=== PATIENT | male | born 1975 | race Caucasian/White ===

== ENCOUNTER 2017-03-15 13:45 | Emergency (ER) | payer OTHER, SELFPAY ==
[~2017-03-15 13:45] MED LIST: Iopamidol 370 76% 100 ML VIAL ONE
[2017-03-15] MEDS ORDERED: Morphine Sulfate 2 MG/ML SYRINGE ONE ×2 (14:20→16:32)
[2017-03-15] MEDS ORDERED: Ketorolac Tromethamine 30 MG/ML VIAL ONE (14:20)
[2017-03-15] MEDS ORDERED: Diazepam 10 MG/2 ML SYRINGE ONE (14:20)
[2017-03-15] MEDS ORDERED: Ondansetron HCl/PF 4 MG/2 ML Vial ONE (14:20)
[2017-03-15 14:34] LABS: #Basophils 0.2 thou/uL (0.0-0.2); #Eosinphils 0.1 thou/uL (0.0-0.7); #Lymphocytes 2.3 thou/uL (1.20-3.40); #Monocytes 0.6 thou/uL (0.11-0.59); #Neutrophils 9.3 thou/uL (1.40-6.50); %Basophils 1.3 % (0.0-1.0); %Eosinophils 0.7 % (0.0-10.0); %Lymphocytes 18.4 % (21.0-51.0); %Monocytes 4.6 % (0.0-10.0); Hemoglobin 16.1 g/dL (14.0-18.0); Mean Corpuscular HGB CONC 35.3 g/dL (32.0-36.0); Mean Corpuscular Hemoglobin 30.5 pg (27.0-31.0); Mean Corpuscular Volume 86.4 fl (80.0-94.0); Mean Platelet Volume 7.1 fL (7.4-10.4); Platelet Count 213 thou/uL (130-400); RBC Distribution Width 11.4 % (11.5-14.5); Red Blood Cell (RBC) Count 5.28 mill/uL (4.70-6.10); White Blood Cell (WBC) Count 12.3 thou/uL (4.8-10.8)
[2017-03-15 14:43] LABS: ALT (SGPT) 15 U/L (0-55); AST (SGOT) 17 U/L (5-34); Albumin 4.3 g/dL (3.5-5.0); Alkaline Phosphatase 68 U/L (40-150); Amylase 42 U/L (25-125); Anion Gap 13 mmol/L (10-20); BUN (Urea Nitrogen) 12 mg/dL (8.9-20.6); Bilirubin, Total 0.4 mg/dL (0.2-1.2); Calc. Creatinine Clearance 0 mL/min (70-130); Calcium 9.5 mg/dL (7.8-10.44); Carbon Dioxide 25 mmol/L (22-29); Chloride 104 mmol/L (98-107); Estimated GFR-MDRD Greater than 90; Globulin 2.2 g/dL (2.4-3.5); Glucose 105 mg/dL (70-105); Lipase 9 U/L (8-78); Potassium 4.1 mmol/L (3.5-5.1); Protein, Total 6.5 g/dL (6.0-8.3); Sodium 138 mmol/L (136-145)
--- NOTE | 2017-03-15 15:49 | CT ---
CT OF CERVICAL SPINE PERFORMED WITHOUT CONTRAST ENHANCEMENT: History Neck injury. Vertebral bodies are normal in height. There is disk narrowing at C5-6, C6-7, and C7-T1. The facet s are in normal alignment. There is no evidence of any significant canal narrowing. There is some mild right foraminal narrowing at C5-6. There is no CT evidence for a fracture. IMPRESSION: No CT evidence of fracture of the cervical spine. POS: [facility]
--- NOTE | 2017-03-15 15:50 | CT ---
CT HEAD NONCONTRAST: 03/15/17 HISTORY: Fall. Head injury. COMPARISON: No comparison. There is no evidence of acute intracranial hemorrhage or infarct. the ventricles appear normal in si ze, shape and position. There is no mass effect or shift of midline structures. Small amount of fluid is noted within the maxillary sinuses. No displaced fractures are apparent. IMPRESSION: No acute intracranial abnormalities are demonstrated. POS: [facility]
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
== END 2017-03-15 16:57 | disposition home or self-care (01) ==
LOC: MADERS 13:45
DX: S06.0X1A Concussion with loss of consciousness of 30 minutes or less, initial encounter (principal); M54.9 Dorsalgia, unspecified; F17.210 Nicotine dependence, cigarettes, uncomplicated; Y04.0XXA Assault by unarmed brawl or fight, initial encounter
CPT/HCPCS: 36415; 70450; 71260; 72125; 74177; 80053; 82150; 83690; 85025; 96374; 96375; 96376; J1885; J2270; J2405; J3360

== ENCOUNTER 2017-09-25 08:44 | Emergency (ER) | payer OTHER, SELFPAY ==
[2017-09-25 09:27] LABS: #Basophils 0.1 thou/uL (0.0-0.2); #Eosinphils 0.2 thou/uL (0.0-0.7); #Lymphocytes 2.9 thou/uL (1.20-3.40); #Monocytes 0.5 thou/uL (0.11-0.59); #Neutrophils 4.7 thou/uL (1.40-6.50); %Basophils 1.6 % (0.0-1.0); %Lymphocytes 34.5 % (21.0-51.0); %Monocytes 6.1 % (0.0-10.0); %Neutrophils 55.8 % (42.0-75.0); Hemoglobin 14.5 g/dL (14.0-18.0); Mean Corpuscular HGB CONC 32.9 g/dL (32.0-36.0); Mean Corpuscular Hemoglobin 29.6 pg (27.0-31.0); Mean Corpuscular Volume 90.1 fl (80.0-94.0); Mean Platelet Volume 6.4 fL (7.4-10.4); Platelet Count 323 thou/uL (130-400); RBC Distribution Width 12.2 % (11.5-14.5); Red Blood Cell (RBC) Count 4.89 mill/uL (4.70-6.10); White Blood Cell (WBC) Count 8.4 thou/uL (4.8-10.8)
[2017-09-25] MEDS ORDERED: Morphine 10 MG/ML VIAL ONE (09:28)
[2017-09-25] MEDS ORDERED: Ketorolac Tromethamine 30 MG/ML VIAL ONE (09:28)
[2017-09-25] MEDS ORDERED: Ondansetron HCl/PF 4 MG/2 ML Vial ONE (09:28)
[2017-09-25 09:55] LABS: ALT (SGPT) 16 U/L (8-55); AST (SGOT) 16 U/L (5-34); Albumin 4.1 g/dL (3.5-5.0); Alkaline Phosphatase 94 U/L (40-150); Anion Gap 13 mmol/L (10-20); BUN (Urea Nitrogen) 11 mg/dL (8.9-20.6); Bilirubin, Total 0.4 mg/dL (0.2-1.2); Calc. Creatinine Clearance 0 mL/min (70-130); Calcium 9.2 mg/dL (7.8-10.44); Carbon Dioxide 28 mmol/L (22-29); Chloride 101 mmol/L (98-107); Estimated GFR-MDRD Greater than 90; Globulin 2.7 g/dL (2.4-3.5); Glucose 91 mg/dL (70-105); Lipase 24 U/L (8-78); Potassium 3.9 mmol/L (3.5-5.1); Protein, Total 6.8 g/dL (6.0-8.3); Sodium 138 mmol/L (136-145)
[2017-09-25 10:43] LABS: Bacteria/HPF Rare-Few HPF (None Seen); Bilirubin Negative (Negative); Blood, Urine Trace (Negative); Clarity Clear (Clear); Crystals/HPF 2+ AMORPH PHOS HPF (Negative); Glucose, Urine (Dipstick) Negative (Negative); Leukocyte Negative (Negative); Nitrite Negative (Negative); Protein, Urine (Dipstick) Negative (Neg-Trace); RBC/HPF 0-3 HPF (0-3); Specific Gravity, Urine 1.015 (1.005-1.030); Squamous Epithelial 0-3 HPF (0-3); Urobilinogen 0.2 mg/dL (0.2-1.0); WBC/HPF 0-3 HPF (0-3); pH, Urine 8.5 (5.0-9.0)
--- NOTE | 2017-09-25 11:32 | CT ---
NONCONTRAST CT FACIAL BONES: Date: 09-25-17 History: Patient fell through ceiling last night onto back. Injury after a fall. FINDINGS: No fracture is seen involving the facial bones. Temporomandibular joints have a normal appearance wi thout dislocation. There is mucosal thickening present in the left maxillary antrum as well as left frontal sinus. There is a defect in the right medial orbital wall which may be congenital in origin, although prior injury is a possibility. The orbits are normal and symmetric in appearance bilateral ly. Mild degenerative changes are seen in the visualized upper cervical spine. IMPRESSION: 1. No evidence of a facial bone fracture. 2. Sinus disease. POS: [facility]
--- NOTE | 2017-09-25 11:32 | CT ---
CT THORAX WITH IV CONTRAST CT ABDOMEN AND PELVIS WITH IV CONTRAST CT THORACIC AND LUMBAR SPINE: Date: 09/25/17 HISTORY: Injury after falling through a ceiling on to back. FINDINGS: CT THORAX: The lungs are clear without evidence of pneumothorax or pleural effusion. Tiny peripheral blebs are seen at each lung apex with minimal pleural and parenchymal scarring at each lung apex. There are no findings to suggest an aortic injury. The T1 portion of the T2 ribs are incompletely im aged but there is otherwise no evidence of fracture. CT ABDOMEN AND PELVIS: There are nonobstructing inferior pole bilateral renal calculi, each measuring 4-5 mm. Kidneys other shen have a normal CT appearance. The liver, spleen, pancreas, bilateral adrenal glands, and urinary bladder demonstrate a normal CT a ppearance. Minimal vascular calcifications are seen in the abdominal aorta and iliac arteries, but there are no findings to suggest an aortic injury. No free fluid or free intraperitoneal gas is seen in the abdomen or pelvis. No fracture is identified. CT abdomen and pelvis is overall unchanged compared to prior study on 03/15/17. CT THORACIC AND LUMBAR SPINE: Mild degenerative changes are seen within the thoracic and lumbar spine, but no fracture or subluxat ion is seen. IMPRESSION: 1. No acute findings are seen in the chest, abdomen, or pelvis. 2. Nonobstructing bilateral renal calculi. 3. No fracture or subluxation involving the thoracic or lumbar spine. POS: [facility]
--- NOTE | 2017-09-25 11:32 | CT ---
HEAD CT WITHOUT CONTRAST: Date: 09/25/17 COMPARISON: 03/15/17. HISTORY: Recent fall, trauma, fell through a ceiling and landed on back. TECHNIQUE: Serial axial CT imaging at 5 mm intervals from vertex through skull base without contrast. Coronal a nd sagittal reformatted imaging obtained. FINDINGS: There is mucosal thickening involving the maxillary sinus on the left. There is an old medial orbita l wall fracture on the right. No acute osseous abnormality is seen. There is no intracranial hemorrhage, midline shift, mass effect, or ventricular enlargement. IMPRESSION: No intracranial hemorrhage or displaced calvarial fracture. POS: [facility]
--- NOTE | 2017-09-25 11:32 | CT ---
CERVICAL SPINE CT WITHOUT CONTRAST: Date: 09/25/17 COMPARISON: 03/15/17. HISTORY: Recent fall, trauma, pain. TECHNIQUE: Serial axial CT imaging obtained at 2.5 mm intervals from skull base through lung apices without con trast. Coronal and sagittal reformatted imaging obtained. FINDINGS: The C1 ring is intact. The craniocervical junction and cervicothoracic junction are intact. No widening of the atlantoaxial interspace. Occipital condyles and dens appear within normal limits. C1-2 articulation appears unremarkable. C2-3: No osseous cause of significant central canal or neural foraminal stenosis. C3-4: Detailed assessment slightly limited secondary to motion. No osseous cause of significant central ca nal or neural foraminal stenosis. C4-5: Facet and uncovertebral osteophyte formation on the left with associated mild left neural foraminal stenosis. No osseous cause of significant central canal or right neural foraminal stenosis. C5-6: Bilateral uncovertebral osteophyte formation, right greater than left. There is associated right-ambar ed neural foraminal stenosis. There is a focus of gas in the right paracentral region which may repr esent a gas-containing small disc herniation. C6-7: Mild posterior osteophyte formation in right paracentral region. No osseous cause of significant mehnaz ral foraminal stenosis. C7-T1: Bilateral uncovertebral osteophyte formation with mild extension of bilateral neural foramina. Poste rior osteophyte formation noted. Subpleural emphysematous change again noted in right lung apex. No displaced fracture or evidence of dislocation seen. IMPRESSION: Stable multilevel cervical spine degenerative change. No evidence for acute fracture or dislocation seen. POS: [facility]
[2017-09-25] MEDS ORDERED: Sodium Chloride 0.9% 1,000 ML BAG ONE (14:18)
== END 2017-09-25 11:45 | disposition home or self-care (01) ==
LOC: MADERS 08:44
DX: T07.XXXA Unspecified multiple injuries, initial encounter (principal); F17.210 Nicotine dependence, cigarettes, uncomplicated; W17.89XA Other fall from one level to another, initial encounter
CPT/HCPCS: 70450; 70486; 71260; 72125; 74177; 80053; 81001; 83690; 85025; 87086; 96374; 96375; 96376; J1885; J2270; J2405; J7050

== ENCOUNTER 2018-01-15 20:50 | Emergency (ER) | payer SELFPAY ==
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
--- NOTE | 2018-01-15 21:51 | RAD ---
LEFT SHOULDER THREE VIEWS 01/15/18 COMPARISON: None. HISTORY: Trauma, fall, pain. FINDINGS: No evidence for glenohumeral joint dislocation. No widening of the AC or CC interspace. No displaced fracture seen. IMPRESSION: No acute findings. POS: [facility]
--- NOTE | 2018-01-15 21:52 | RAD ---
THREE VIEWS OF THE RIGHT SHOULDER 01/15/18 COMPARISON: None. HISTORY: Fall, trauma, pain. FINDINGS: There is no widening or the AC or CC interspace. There is no displaced fracture or dislocation. IMPRESSION: No acute findings. POS: [facility]
--- NOTE | 2018-01-15 21:54 | RAD ---
LEFT ELBOW TWO VIEWS: 01/15/18 COMPARISON: None. HISTORY: Fall, trauma, pain. FINDINGS: No elbow joint effusion, displaced fracture, or evidence of dislocation. IMPRESSION: No acute findings. POS: [facility]
--- NOTE | 2018-01-15 21:54 | RAD ---
TWO VIEWS RIGHT ELBOW 01/15/18 COMPARISON: None. HISTORY: Fall, trauma, pain. FINDINGS: No elbow joint effusion, displaced fracture, or evidence of dislocation. IMPRESSION: Unremarkable two view examination of the right elbow. POS: [facility]
[2018-01-15] MEDS ORDERED: HYDROcodone/Acetaminophen 10/325 mg Tablet ONE (21:59)
[2018-01-15] MEDS ORDERED: Ibuprofen 800 MG TAB ONE (21:59)
[2018-01-15] MEDS ORDERED: Acetaminophen 325 MG TAB ONE (21:59)
== END 2018-01-15 22:13 | disposition home or self-care (01) ==
LOC: MADERS 20:50
DX: S40.012A Contusion of left shoulder, initial encounter (principal); S40.011A Contusion of right shoulder, initial encounter; S50.02XA Contusion of left elbow, initial encounter; S50.01XA Contusion of right elbow, initial encounter; F17.210 Nicotine dependence, cigarettes, uncomplicated; V69.3XXA Occupant (driver) (passenger) of heavy transport vehicle injured in unspecified nontraffic accident, initial encounter
CPT/HCPCS: 71045

== ENCOUNTER 2018-02-19 20:07 | Emergency (ER) | payer SELFPAY ==
[2018-02-19] MEDS ORDERED: HYDROcodone/Acetaminophen 10/325 mg Tablet ONE (20:34)
[2018-02-19] MEDS ORDERED: Diazepam 5 MG TAB ONE (20:34)
[2018-02-19] MEDS ORDERED: Acetaminophen 325 MG TAB ONE (20:35)
[2018-02-19] MEDS ORDERED: Ketorolac Tromethamine 30 MG/ML VIAL ONE (20:35)
[2018-02-19] MEDS ORDERED: Ketorolac Tromethamine 60 MG/2 ML VIAL ONE (20:41)
== END 2018-02-19 21:06 | disposition home or self-care (01) ==
LOC: MADERS 20:07
DX: S39.012A Strain of muscle, fascia and tendon of lower back, initial encounter (principal); F17.210 Nicotine dependence, cigarettes, uncomplicated; J45.909 Unspecified asthma, uncomplicated; X50.1XXA Overexertion from prolonged static or awkward postures, initial encounter
CPT/HCPCS: 96372; J1885

== ENCOUNTER 2019-06-27 17:13 | Emergency (ER) | payer SELFPAY ==
[~2019-06-27 17:13] MED LIST changes: -Iopamidol 370 76% 100 ML VIAL ONE; +Sodium Chloride 0.9% 1,000 ML BAG ONE
[2019-06-27] MEDS ORDERED: Ketorolac Tromethamine 30 MG/ML VIAL ONE (17:39)
[2019-06-27 17:43] LABS: #Basophils 0.2 thou/uL (0.0-0.2); #Eosinphils 0.1 thou/uL (0.0-0.7); #Lymphocytes 3.5 thou/uL (1.20-3.40); #Neutrophils 9.2 thou/uL (1.40-6.50); %Basophils 1.3 % (0.0-1.0); %Lymphocytes 24.8 % (21.0-51.0); %Monocytes 7.4 % (0.0-10.0); %Neutrophils 65.4 % (42.0-75.0); Hemoglobin 17.4 g/dL (14.0-18.0); Mean Corpuscular HGB CONC 33.3 g/dL (32.0-36.0); Mean Corpuscular Hemoglobin 28.8 pg (27.0-31.0); Mean Corpuscular Volume 86.3 fL (78.0-98.0); Mean Platelet Volume 6.8 fL (7.4-10.4); Platelet Count 330 thou/uL (130-400); Red Blood Cell (RBC) Count 6.06 mill/uL (4.70-6.10)
[2019-06-27 17:45] LABS: Bilirubin Negative (Negative); Blood, Urine Negative (Negative); Clarity Clear (Clear); Glucose, Urine (Dipstick) Negative (Negative); Leukocyte Negative (Negative); Nitrite Negative (Negative); Protein, Urine (Dipstick) Negative (Neg-Trace); Urobilinogen 0.2 mg/dL (Less than 2)
[2019-06-27 17:56] LABS: Amphetamine Not Detected (NotDetected); Barbiturates Screen Not Detected (NotDetected); Benzodiazepine Screen Not Detected (NotDetected); Cocaine Metabolite Screen Not Detected (NotDetected); Medtox Control Line Valid? VALID (VALID); Methadone Not Detected (NotDetected); Methamphetamine Not Detected (NotDetected); Opiate Screen Not Detected (NotDetected); Oxycodone Screen Not Detected (NotDetected); Phencyclidine (PCP) Not Detected (NotDetected); THC/Cannabinoid Screen Not Detected (NotDetected); Tricyclic Screen Not Detected (NotDetected)
[2019-06-27 17:58] LABS: ALT (SGPT) 12 U/L (8-55); AST (SGOT) 18 U/L (5-34); Albumin 5.2 g/dL (3.5-5.0); Alkaline Phosphatase 96 U/L (40-150); Anion Gap 18 mmol/L (10-20); BUN (Urea Nitrogen) 15 mg/dL (8.9-20.6); Bilirubin, Total 0.5 mg/dL (0.2-1.2); CK (CPK) 379 U/L (30-200); Calc. Creatinine Clearance 0 mL/min (70-130); Calcium 9.8 mg/dL (7.8-10.44); Carbon Dioxide 24 mmol/L (22-29); Chloride 102 mmol/L (98-107); Estimated GFR-MDRD 50; Globulin 3.1 g/dL (2.4-3.5); Glucose 152 mg/dL (70-105); Potassium 3.4 mmol/L (3.5-5.1); Protein, Total 8.3 g/dL (6.0-8.3); Sodium 141 mmol/L (136-145)
== END 2019-06-27 19:38 | disposition home or self-care (01) ==
LOC: MADERS 17:13
DX: T67.5XXA Heat exhaustion, unspecified, initial encounter (principal); M62.82 Rhabdomyolysis; F17.210 Nicotine dependence, cigarettes, uncomplicated
CPT/HCPCS: 80053; 80306; 81003; 82550; 84484; 85025; 93005; 96361; 96374; J1885; J7050

== ENCOUNTER 2019-07-22 23:38 | Emergency (ER) | payer SELFPAY ==
[2019-07-23] MEDS ORDERED: Sodium Chloride 0.9% 2,000 ML ONE (00:06)
[2019-07-23] MEDS ORDERED: Acetaminophen 500 MG TAB ONE (00:19)
[2019-07-23 00:24] LABS: #Basophils 0.1 thou/uL (0.0-0.2); #Eosinphils 0.1 thou/uL (0.0-0.7); Mean Corpuscular Hemoglobin 28.4 pg (27.0-31.0)
[2019-07-23 00:32] LABS: #Lymphocytes 2.3 thou/uL (1.20-3.40); #Monocytes 0.8 thou/uL (0.11-0.59); #Neutrophils 7.7 thou/uL (1.40-6.50); %Basophils 1.2 % (0.0-1.0); %Eosinophils 0.6 % (0.0-10.0); %Monocytes 7.2 % (0.0-10.0); %Neutrophils 69.9 % (42.0-75.0); Mean Corpuscular HGB CONC 32.7 g/dL (32.0-36.0); Mean Corpuscular Volume 86.9 fL (78.0-98.0); Mean Platelet Volume 6.6 fL (7.4-10.4); Platelet Count 285 thou/uL (130-400); RBC Distribution Width 12.4 % (11.5-14.5); Red Blood Cell (RBC) Count 5.99 mill/uL (4.70-6.10)
[2019-07-23 00:44] LABS: ALT (SGPT) 11 U/L (8-55); AST (SGOT) 18 U/L (5-34); Acetaminophen Less than 6.0 mcg/mL (10.0-30.0); Albumin 4.7 g/dL (3.5-5.0); Alcohol Less than 10 mg/dL (Less than 10); Alkaline Phosphatase 83 U/L (40-150); Anion Gap 19 mmol/L (10-20); BUN (Urea Nitrogen) 30 mg/dL (8.9-20.6); Bilirubin, Total 0.5 mg/dL (0.2-1.2); CK (CPK) 777 U/L (30-200); Calc. Creatinine Clearance 0 mL/min (70-130); Calcium 9.1 mg/dL (7.8-10.44); Carbon Dioxide 21 mmol/L (22-29); Chloride 103 mmol/L (98-107); Estimated GFR-MDRD 29; Globulin 2.8 g/dL (2.4-3.5); Glucose 119 mg/dL (70-105); Lipase 11 U/L (8-78); Potassium 3.7 mmol/L (3.5-5.1); Protein, Total 7.5 g/dL (6.0-8.3); Salicylate Less than 8.0 mg/dL (15.0-30.0); Sodium 139 mmol/L (136-145)
[2019-07-23] MEDS ORDERED: Lidocaine 1% w/Epinephrine 1:100K 20 ML VIAL ONE (00:54)
[2019-07-23 01:07] LABS: Bilirubin Small (Negative); Blood, Urine Large (Negative); Clarity Clear (Clear); Glucose, Urine (Dipstick) Negative (Negative); Leukocyte Negative (Negative); Nitrite Negative (Negative); Protein, Urine (Dipstick) 100 mg/dL (Neg-Trace); Urobilinogen 0.2 mg/dL (Less than 2)
[2019-07-23 01:10] LABS: Bacteria/HPF 1+ HPF (None Seen); Squamous Epithelial 0-3 HPF (0-3); WBC/HPF 0-3 HPF (0-3)
[2019-07-23 01:12] LABS: Cocaine Metabolite Screen Detected (NotDetected); Phencyclidine (PCP) Not Detected (NotDetected); THC/Cannabinoid Screen Not Detected (NotDetected)
[2019-07-23 01:13] LABS: Amphetamine Detected (NotDetected); Barbiturates Screen Not Detected (NotDetected); Benzodiazepine Screen Not Detected (NotDetected); Medtox Control Line Valid? VALID (VALID); Methadone Not Detected (NotDetected); Methamphetamine Detected (NotDetected); Opiate Screen Not Detected (NotDetected); Oxycodone Screen Not Detected (NotDetected); Tricyclic Screen Not Detected (NotDetected)
--- NOTE | 2019-07-23 05:54 | RAD ---
RIGHT HAND FOUR VIEWS: INDICATIONS: Post reduction. COMPARISON: Prior exam done at 12:34 a.m. FINDINGS/IMPRESSION: Since the comparison examination, there has been interval placement of a splint. The angulated small finger metacarpal neck fracture is unchanged in alignment. POS: [facility]
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
--- NOTE | 2019-07-23 06:01 | RAD ---
CHEST ONE VIEW: INDICATIONS: Cough. COMPARISON: 05/06/2019 FINDINGS: The lungs are hyperinflated but clear. The lung apices are excluded. Heart size is normal. No acut e osseous abnormality is evident. IMPRESSION: Limited examination. Lung apices are excluded from view. There is persistent hyperinflation. No ev idence of acute infiltrate. POS: [facility]
== END 2019-07-23 02:05 | disposition home or self-care (01) ==
LOC: MADERS 23:38
DX: S62.336A Displaced fracture of neck of fifth metacarpal bone, right hand, initial encounter for closed fracture (principal); N17.9 Acute kidney failure, unspecified; E86.0 Dehydration; F17.210 Nicotine dependence, cigarettes, uncomplicated; W23.0XXA Caught, crushed, jammed, or pinched between moving objects, initial encounter
CPT/HCPCS: 26605; 71045; 80053; 80306; 80307; 81003; 81015; 82550; 83605; 83690; 85025; 96360; 96361; J2001; J7050

== ENCOUNTER 2019-10-06 09:30 | Emergency (ER) | payer SELFPAY ==
[2019-10-06] MEDS ORDERED: Ibuprofen 800 MG TAB ONE (10:08)
--- NOTE | 2019-10-06 10:28 | RAD ---
Exam:3 views left foot HISTORY: Pain. Injury. COMPARISON: None FINDINGS: Lisfranc alignment is maintained. Joint spaces are preserved. Oblique minimally displaced fracture involving the proximal phalanx of the third digit. No definite i ntra-articular extension. No additional fractures. IMPRESSION: Oblique fracture involving the proximal thalamus of the third digit.
== END 2019-10-06 10:44 | disposition home or self-care (01) ==
LOC: MADERS 09:30
DX: S92.512A Displaced fracture of proximal phalanx of left lesser toe(s), initial encounter for closed fracture (principal); F17.210 Nicotine dependence, cigarettes, uncomplicated; Z71.6 Tobacco abuse counseling; W18.40XA Slipping, tripping and stumbling without falling, unspecified, initial encounter
CPT/HCPCS: 99406

== ENCOUNTER 2020-02-06 20:25 | Emergency (ER) | payer SELFPAY ==
[~2020-02-06 20:25] MED LIST changes: -Sodium Chloride 0.9% 1,000 ML BAG ONE; +Sodium Chloride Irrig Solution 250 ML BOT ONE
[2020-02-06] MEDS ORDERED: HYDROcodone/Acetaminophen 5/325 mg Tablet ONE ×2 (20:46→20:49)
[2020-02-06] MEDS ORDERED: Ketorolac Tromethamine 60 MG/2 ML VIAL ONE (20:47)
[2020-02-06] MEDS ORDERED: Lidocaine 1% w/Epinephrine 1:100K 20 ML VIAL ONE (20:47)
[2020-02-06] MEDS ORDERED: Bacitracin 1 PK ONE (21:15)
[2020-02-06] MEDS ORDERED: Morphine 4 MG/ML VIAL ONE (21:17)
--- NOTE | 2020-02-06 21:30 | RAD ---
4 views right elbow: 02/06/2020 COMPARISON: 01/15/2018 HISTORY: Injury, trauma, pain FINDINGS: No fracture or dislocation. No radiopaque foreign body or subcutaneous gas. IMPRESSION: No acute findings.
--- NOTE | 2020-02-06 21:31 | RAD ---
3 views right shoulder: 02/06/2020 COMPARISON: 01/15/2018 HISTORY: Injury, trauma, pain FINDINGS: No fracture or dislocation. No radiopaque foreign body or subcutaneous gas. IMPRESSION: No acute findings.
== END 2020-02-06 21:45 | disposition home or self-care (01) ==
LOC: MADERS 20:25
DX: S81.812A Laceration without foreign body, left lower leg, initial encounter (principal); S43.401A Unspecified sprain of right shoulder joint, initial encounter; S50.01XA Contusion of right elbow, initial encounter; F17.210 Nicotine dependence, cigarettes, uncomplicated; W01.110A Fall on same level from slipping, tripping and stumbling with subsequent striking against sharp glass, initial encounter; Y99.0 Civilian activity done for income or pay
CPT/HCPCS: 12002; 96372; J1885; J2270

== ENCOUNTER 2020-02-17 14:23 | Emergency (ER) | payer SELFPAY | END 2020-02-17 15:05 | disposition home or self-care (01) | LOC: MADERS 14:23 | DX: S81.012D Laceration without foreign body, left knee, subsequent encounter (principal); F17.210 Nicotine dependence, cigarettes, uncomplicated; X58.XXXD Exposure to other specified factors, subsequent encounter ==

== ENCOUNTER 2021-04-27 14:01 | Emergency (ER) | payer SELFPAY ==
[~2021-04-27 14:01] MED LIST changes: +Iopamidol 370 76% 100 ML VIAL ONE; -Sodium Chloride Irrig Solution 250 ML BOT ONE
[2021-04-27] MEDS ORDERED: Sodium Chloride 0.9% 1,000 ML ONE (14:27)
[2021-04-27] MEDS ORDERED: Ketorolac Tromethamine 30 MG/ML VIAL ONE (14:27)
[2021-04-27] MEDS ORDERED: Dexamethasone 10 MG/ML VIAL ONE (14:27)
[2021-04-27 14:38] LABS: #Basophils 0.1 thou/uL (0.0-0.2); #Eosinphils 0.1 thou/uL (0.0-0.7); #Lymphocytes 2.6 thou/uL (1.20-3.40); #Neutrophils 8.5 thou/uL (1.40-6.50); %Basophils 0.9 % (0.0-1.0); %Eosinophils 1.2 % (0.0-10.0); %Lymphocytes 21.2 % (21.0-51.0); %Neutrophils 68.7 % (42.0-75.0); Hemoglobin 13.8 g/dL (14.0-18.0); Mean Corpuscular Hemoglobin 28.9 pg (27.0-31.0); Mean Corpuscular Volume 87.5 fL (78.0-98.0); Mean Platelet Volume 7.8 fL (7.4-10.4); Platelet Count 256 thou/uL (130-400); RBC Distribution Width 11.6 % (11.5-14.5); Red Blood Cell (RBC) Count 4.78 mill/uL (4.70-6.10); White Blood Cell (WBC) Count 12.3 thou/uL (4.8-10.8)
[2021-04-27 14:53] LABS: Anion Gap 18 mmol/L (10-20); BUN (Urea Nitrogen) 17 mg/dL (8.9-20.6); Calc. Creatinine Clearance 0 mL/min (70-130); Calcium 8.8 mg/dL (7.8-10.44); Carbon Dioxide 19 mmol/L (22-29); Chloride 102 mmol/L (98-107); Glucose 154 mg/dL (70-105); Potassium 3.8 mmol/L (3.5-5.1); Sodium 135 mmol/L (136-145)
[2021-04-27] MEDS ORDERED: Lidocaine Viscous Sol 2% 15 ml UD Cup ONE (14:53)
[2021-04-27] MEDS ORDERED: Lorazepam 2 MG/ML VIAL ONE (14:55)
== END 2021-04-27 16:22 | disposition home or self-care (01) ==
LOC: MADERS 14:01
DX: J02.9 Acute pharyngitis, unspecified (principal); F17.290 Nicotine dependence, other tobacco product, uncomplicated
CPT/HCPCS: 70491; 80048; 85025; 96372; 96374; 96375; J1100; J1885; J2060; J7050; Q9967

== ENCOUNTER 2021-08-05 17:58 | Emergency (ER) | payer SELFPAY ==
[~2021-08-05 17:58] MED LIST changes: +Sodium Chloride 0.9% 1,000 ML BAG ONE
[2021-08-05 18:53] LABS: #Basophils 0.1 thou/uL (0.0-0.2); #Eosinphils 0.1 thou/uL (0.0-0.7); #Lymphocytes 2.1 thou/uL (1.20-3.40); #Monocytes 0.6 thou/uL (0.11-0.59); #Neutrophils 7.6 thou/uL (1.40-6.50); %Basophils 1.1 % (0.0-1.0); %Eosinophils 1.1 % (0.0-10.0); %Lymphocytes 20.1 % (21.0-51.0); %Monocytes 5.6 % (0.0-10.0); %Neutrophils 72.1 % (42.0-75.0); Hemoglobin 14.6 g/dL (14.0-18.0); Mean Corpuscular HGB CONC 32.7 g/dL (32.0-36.0); Mean Corpuscular Volume 88.7 fL (78.0-98.0); Mean Platelet Volume 7.6 fL (7.4-10.4); Platelet Count 311 thou/uL (130-400); RBC Distribution Width 11.6 % (11.5-14.5); Red Blood Cell (RBC) Count 5.05 mill/uL (4.70-6.10); White Blood Cell (WBC) Count 10.6 thou/uL (4.8-10.8)
[2021-08-05] MEDS ORDERED: Morphine 4 MG/ML VIAL ONE (18:55)
[2021-08-05] MEDS ORDERED: Ondansetron PF 4 MG/2 ML Vial ONE (18:57)
[2021-08-05 19:00] LABS: Prothrombin Time 13.2 sec (12.0-14.7)
[2021-08-05 19:01] LABS: PTT 24.7 sec (22.9-36.1)
[2021-08-05 19:08] LABS: ALT (SGPT) 14 U/L (8-55); AST (SGOT) 19 U/L (5-34); Albumin 3.9 g/dL (3.5-5.0); Alcohol Less than 10 mg/dL (Less than 10); Alkaline Phosphatase 71 U/L (40-110); Anion Gap 13 mmol/L (10-20); BUN (Urea Nitrogen) 11 mg/dL (8.9-20.6); Bilirubin, Total 0.2 mg/dL (0.2-1.2); Calc. Creatinine Clearance 0 mL/min (70-130); Calcium 9.5 mg/dL (7.8-10.44); Carbon Dioxide 24 mmol/L (22-29); Chloride 107 mmol/L (98-107); Globulin 2.5 g/dL (2.4-3.5); Glucose 69 mg/dL (70-105); Potassium 3.7 mmol/L (3.5-5.1); Protein, Total 6.4 g/dL (6.0-8.3); Sodium 140 mmol/L (136-145)
[2021-08-05] MEDS ORDERED: Ketorolac Tromethamine 30 MG/ML VIAL ONE (20:07)
[2021-08-05] MEDS ORDERED: Pantoprazole 40 MG VIAL ONE (20:07)
[2021-08-05 20:47] LABS: Bilirubin Negative (Negative); Blood, Urine Moderate (Negative); Clarity Clear (Clear); Glucose, Urine (Dipstick) Negative (Negative); Ketone, Urine Trace mg/dL (Negative); Leukocyte Negative (Negative); Nitrite Negative (Negative); Protein, Urine (Dipstick) 100 mg/dL (Neg-Trace); Specific Gravity, Urine 1.025 (1.005-1.030); Urobilinogen 0.2 mg/dL (Less than 2)
[2021-08-05 20:56] LABS: Mucous/LPF 2+ LPF (<2+); RBC/HPF 21-50 HPF (0-3)
[2021-08-05 20:57] LABS: Calcium Oxalate Crystals 2+ HPF (None Seen)
[2021-08-05 20:58] LABS: Amphetamine Detected (NotDetected); Barbiturates Screen Not Detected (NotDetected); Benzodiazepine Screen Not Detected (NotDetected); Cocaine Metabolite Screen Detected (NotDetected); Medtox Control Line Valid? VALID (VALID); Methadone Not Detected (NotDetected); Methamphetamine Detected (NotDetected); Opiate Screen Detected (NotDetected); Oxycodone Screen Not Detected (NotDetected); Phencyclidine (PCP) Not Detected (NotDetected); THC/Cannabinoid Screen Not Detected (NotDetected); Tricyclic Screen Not Detected (NotDetected)
== END 2021-08-05 20:21 | disposition left against medical advice (07) ==
LOC: MADERS 17:58
DX: S12.200A Unspecified displaced fracture of third cervical vertebra, initial encounter for closed fracture (principal); S05.12XA Contusion of eyeball and orbital tissues, left eye, initial encounter; J43.9 Emphysema, unspecified; Y04.8XXA Assault by other bodily force, initial encounter
CPT/HCPCS: 70450; 70486; 71260; 72125; 74177; 80053; 80306; 80307; 81003; 81015; 85025; 85610; 85730; 94760; 96374; 96375; C9113; J1885; J2270; J2405; J7050; Q9967

== ENCOUNTER 2022-08-18 19:55 | Emergency (ER) | payer SELFPAY ==
[2022-08-18] MEDS ORDERED: Bacitracin 1 PK ONE ×2 (21:08→21:35)
[2022-08-18] MEDS ORDERED: Lidocaine 1% (PF) 30 ML VIAL ONE (21:08)
[2022-08-18] MEDS ORDERED: Ibuprofen 800 MG TAB ONE (21:35)
[2022-08-18] MEDS ORDERED: Cephalexin 500 MG CAP ONE (21:35)
== END 2022-08-18 21:50 | disposition home or self-care (01) ==
LOC: MADERS 19:55
DX: S61.212A Laceration without foreign body of right middle finger without damage to nail, initial encounter (principal); S60.221A Contusion of right hand, initial encounter; F17.210 Nicotine dependence, cigarettes, uncomplicated; W20.8XXA Other cause of strike by thrown, projected or falling object, initial encounter; Y92.009 Unspecified place in unspecified non-institutional (private) residence as the place of occurrence of the external cause
CPT/HCPCS: 12001; J2001